=== PATIENT | female | born 1975 | race African-American/Black ===

== ENCOUNTER 2018-04-30 20:39 | Emergency (ER) | payer OTHER ==
[~2018-04-30] VITALS: Ht 154.9 cm; Wt 75.8 kg
[~2018-04-30 20:39] MED LIST: HYDROCHLOROTHIA25 M2 PO; IBUPROFEN 200200 M1 PO; NORCO 5-325 TA1 EACH PO
[2018-04-30 22:20] VITALS: BP 108/70
== END 2018-04-30 22:20 | disposition home or self-care (01) ==
LOC: ER 20:39
DX: S20.312A Abrasion of left front wall of thorax, initial encounter (principal); M25.511 Pain in right shoulder; I10 Essential (primary) hypertension; V49.09XA Driver injured in collision with other motor vehicles in nontraffic accident, initial encounter; Y93.I9 Activity, other involving external motion; Y92.410 Unspecified street and highway as the place of occurrence of the external cause; Y99.8 Other external cause status